=== PATIENT | male | born 1950 | race Caucasian/White ===

== ENCOUNTER 2017-12-29 07:17 | Day surgery (SDC) | payer MEDICARE ==
[~2017-12-29] VITALS: Ht 172.7 cm; Wt 77.6 kg
[~2017-12-29 07:17] MED LIST: ADLT ASA LOW81 MG PO; ADVICOR PO; FISH OIL1000 MG PO; HYZAAR1 TA1 PO; SAW PALMETTO1 CAP PO; SUDAFED CONGEST30 MG PO; VIAGRA50 MG PO; ZYRTEC10 M2 PO
[2017-12-29 10:26] VITALS: BP 130/76
== END 2017-12-29 09:55 | disposition home or self-care (01) ==
LOC: ENDO 07:17
PROVIDERS: ATTEND Surgery
PROC: 0DJD8ZZ Inspection of Lower Intestinal Tract, Via Natural or Artificial Opening Endoscopic (ICD-10-PCS; principal; 2017-12-29)
DX: Z12.11 Encounter for screening for malignant neoplasm of colon (principal); I10 Essential (primary) hypertension; E78.5 Hyperlipidemia, unspecified

== ENCOUNTER 2022-08-09 10:31 | Emergency (ER) | payer MEDICARE ==
[~2022-08-09] VITALS: Ht 172.7 cm; Wt 79.5 kg
[2022-08-09] MEDS ORDERED: LOVASTATIN10 M1 PO (10:42)
[2022-08-09] MEDS ORDERED: PREDNISONE50 MG PO (10:55)
[2022-08-09] MEDS ORDERED: VISTARIL 50MG C50 M1 PO (10:55)
[2022-08-09 11:02] VITALS: BP 129/93
== END 2022-08-09 11:23 | disposition home or self-care (01) ==
LOC: ED 10:31
DX: J30.9 Allergic rhinitis, unspecified (principal); F41.9 Anxiety disorder, unspecified; I10 Essential (primary) hypertension; E78.5 Hyperlipidemia, unspecified; F17.220 Nicotine dependence, chewing tobacco, uncomplicated

== ENCOUNTER 2024-06-05 06:41 | Day surgery (SDC) | payer MEDICARE ==
[~2024-06-05] VITALS: Ht 172.7 cm; Wt 78.9 kg
[~2024-06-05 06:41] MED LIST changes: +ABILIFY10 MG PO; +ALLEGRA ALLERGY60 MG PO; +CLARITIN10 M1 PO; +COSOPT1 ML OU; +FISH OIL1000 M1 PO; +LOVASTATIN10 M1 PO; +OMEPRAZOLE DR40 MG PO; +PREDNISONE50 MG PO; +PROBIOTI2 PO; +PROTONIX40 M2 PO; +VISTARIL 50MG C50 M1 PO
[2024-06-05] MEDS ORDERED: FAMOTIDINE 10MG/ML 2ML SDV IV ONE (07:06)
[2024-06-05] MEDS ORDERED: LACTATED RINGER'S 1,000 ML IV ONE (07:06)
[2024-06-05 08:36] VITALS: BP 119/75
[2024-06-05] MEDS ORDERED: LIDOCAINE HCL 2% 2ML SDV IV ONE (11:43)
[2024-06-05] MEDS ORDERED: PROPOFOL 200 MG/20 ML VIAL IV ONE (11:43)
[2024-06-05] MEDS ORDERED: GLYCOPYRROLATE 0.2 MG/ML IV ONE (11:43)
== END 2024-06-05 08:45 | disposition home or self-care (01) ==
LOC: ENDO 06:41 → ORM 09:00 → ENDO 09:00 → ORM 09:45
PROVIDERS: ATTEND Internal Medicine Gastroenterology
PROC: 0DB48ZX Excision of Esophagogastric Junction, Via Natural or Artificial Opening Endoscopic, Diagnostic (ICD-10-PCS; principal; 2024-06-05)
DX: K22.70 Barrett's esophagus without dysplasia (principal); K21.9 Gastro-esophageal reflux disease without esophagitis; E78.5 Hyperlipidemia, unspecified; F17.210 Nicotine dependence, cigarettes, uncomplicated; Z79.899 Other long term (current) drug therapy; Z86.010 Personal history of colon polyps